=== PATIENT | male | born 1950 | race Caucasian/White ===

== ENCOUNTER 2019-12-27 13:39 | Inpatient (IN) | payer OTHER, MEDICARE ==
[~2019-12-27] VITALS: Ht 165.1 cm; Wt 54.4 kg
[2019-12-27] VITALS (8 sets, daily range): BP systolic 104–132; BP diastolic 66–80
[~2019-12-27 13:39] MED LIST: ABILIFY2 MG PO; ANDRO 100100 MG/ML IM; AUGMENTIN 500 M1 TAB PO; BUSPIRONE HCL10 MG PO; DILTIAZEM240 M1 PO; MS CONTIN15 MG PO; PRILOSEC20 MG PO; REMERON SOLTAB45 MG PO; TRAMADOL HCL50 MG PO; Theragran M,Cen1 TAB PO; VITAMIN B121000 MC2 SL
[2019-12-27 14:02] LABS: HEMATOCRIT 44.5 % (42.0-52.0); HEMOGLOBIN 15.6 g/dl (14.0-18.0); MEAN CELL VOLUME 88.5 fl (80.0-94.0); MEAN CORPUSCULAR HGB CONC 35.1 g/dl (33.0-37.0); MEAN PLATELET VOLUME 8.7 fl (9.6-12.3); PLATELET COUNT AUTOMATED 339 10*3/uL (130-400); RED BLOOD COUNT 5.03 10*6/uL (4.50-5.90); RED CELL DISTRI WIDTH 12.7 % (0-14.5); WHITE BLOOD COUNT 29.6 10*3/uL (4.8-10.8)
[2019-12-27 14:16] LABS: ACT PARTIAL THROMBO TIME 33.6 SECONDS (20.0-32.1)
[2019-12-27 14:18] LABS: ALBUMIN 2.9 gm/dl (3.1-4.5); ALKALINE PHOSPHATASE 86 U/L (45-117); BUN 17 mg/dl (7-24); CHLORIDE 98 mmol/L (98-107); CREATININE 0.97 mg/dL (0.70-1.30); POTASSIUM 3.9 mmol/L (3.5-5.1); SGOT/AST 42 IU/L (3-35); SGPT/ALT 24 U/L (12-78); SODIUM 133 mmol/L (136-145); TOTAL PROTEIN 8.2 gm/dL (6.4-8.2)
[2019-12-27 14:23] LABS: PLATELET SUFFICIENCY NORMAL (NORMAL); TOTAL CELLS COUNTED 100 #CELLS
--- NOTE | 2019-12-27 16:01 | NUR ---
DR VILLAR NOTIFIED THAT DR FISHER IS NOT AVAILABLE FOR CONSULT UNTIL TOMORROW.
--- NOTE | 2019-12-27 16:14 | NUR ---
PATIENT DENIES WOUNDS A&OX4.
--- NOTE | 2019-12-27 16:16 | NUR ---
PATIENT TAKEN TO [facility] AT THIS TIME BY THIS NURSE. NO CHANGE IN PATIENT STATUS.
[2019-12-27 17:05] LABS: ABG BASE EXCESS -1.1 mmol/L (-2.0-2.0); ARTERIAL BLOOD GAS PH 7.499 (7.35-7.45)
[2019-12-27] MEDS ORDERED: PRINIVIL10 MG PO (17:32)
[2019-12-27] MEDS ORDERED: VITAMIN D325 MC1 PO (17:33)
--- NOTE | 2019-12-27 18:00 | NUR ---
DR YAN ANSWERING SERVICE MADE AWARE OF NEW CONSULT ORDER.
--- NOTE | 2019-12-27 19:14 | NUR ---
MORPHINE GIVEN AT THIS TIME PER PT REQUEST FOR PAIN RATED 8/10. PAIN LOCATED IN CHEST AND LEFT FLANK AREA. PATIENT DESCRIBES PAIN "PRESSURE-LIKE". WILL CONTINUE TO MONITOR AND REASSESS. CALL LIGHT WITHIN REACH.
--- NOTE | 2019-12-27 23:16 | NUR ---
IV SITE BECAME DISLODGED WHEN PATIENT WAS ADJUSTING GOWN. BLEEDING WAS STOPPED, PATIENT CLEANED UP AND IV RESTARTED IN THE RIGHT WRIST. PATIENT TOLERATED WELL.
--- NOTE | 2019-12-27 23:52 | NUR ---
D-DIMER RESULT ELEVATED. CARDIOLOGY STATES SINCE PATIENT IS ALREADY ON HEPARIN RESULTS DO NOT NEED TO BE CALLED TO THEM AND THEY WILL HANDLE IT IN THE MORNING PER DR. WHITE.
[2019-12-28] VITALS (9 sets, daily range): BP systolic 107–135; BP diastolic 64–87
--- NOTE | 2019-12-28 02:20 | NUR ---
DR. KWONG CALLED. PATIENT SOUNDS MOIST WITH MOIST NON-PRODUCTIVE COUGH AND PATIENT STATES HE IS HAVING TROUBLE BREATHING PATIENT RESPIRATIONS ARE 30-40 AT THIS TIME AND APPEARS RESTLESS. ORDERS RECEIVED FOR IV LASIX. WILL CONTINUE TO MONITOR AND REASSESS.
--- NOTE | 2019-12-28 03:15 | NUR ---
PATIENT SITTING UP IN BED PATIENT STATES HE CANT BREATHE. PATIENT RESPIRATIONS IN THE 50-60 AND PATIENT IS DIAPHORETIC AT THIS TIME. DR. KWONG NOTIFIED AND ORDERS RECEIVED. PATIENT PLACED ON BIPAP 12/6 AT 50% AND ABG DRAWN AT THIS TIME. PATIENT IS ABLE TO STILL ANSWER QUESTIONS. BREATHING TX GIVEN AT THIS TIME AND CXR TAKEN. CALL LIGHT WITHIN REACH.
[2019-12-28 03:40] LABS: ARTERIAL BLOOD GAS PH 7.433 (7.35-7.45)
--- NOTE | 2019-12-28 03:45 | NUR ---
DR. KWONG NOTIFIED OF ABG RESULTS. PATIENT WILL REMAIN ON BIPAP FOR 2 HOURS AND ABG'S WILL BE REPEATED.
[2019-12-28 05:21] LABS: ALBUMIN 2.7 gm/dl (3.1-4.5); BUN 16 mg/dl (7-24); CHLORIDE 103 mmol/L (98-107); CHOLESTEROL 101 mg/dL (<200); CREATININE 0.92 mg/dL (0.70-1.30); POTASSIUM 3.3 mmol/L (3.5-5.1); SGOT/AST 35 IU/L (3-35); SGPT/ALT 24 U/L (12-78); SODIUM 136 mmol/L (136-145); TRIGLYCERIDES 75 mg/dl (<150); VLDL CHOLESTEROL 15 mg/dL (6-40)
[2019-12-28 05:28] LABS: ALKALINE PHOSPHATASE 85 U/L (45-117); HDL CHOLESTEROL 55 mg/dl (40-60); LDL CHOLESTEROL 31 mg/dL (9-159); PHOSPHOROUS 2.8 mg/dL (2.5-4.9); TOTAL PROTEIN 8.1 gm/dL (6.4-8.2)
[2019-12-28 06:07] LABS: HEMATOCRIT 46.2 % (42.0-52.0); HEMOGLOBIN 15.6 g/dl (14.0-18.0); MEAN CELL VOLUME 91.1 fl (80.0-94.0); MEAN CORPUSCULAR HGB 30.8 pg (27.0-31.0); MEAN CORPUSCULAR HGB CONC 33.8 g/dl (33.0-37.0); MEAN PLATELET VOLUME 9.3 fl (9.6-12.3); PLATELET COUNT AUTOMATED 389 10*3/uL (130-400); RED BLOOD COUNT 5.07 10*6/uL (4.50-5.90); RED CELL DISTRI WIDTH 12.9 % (0-14.5); WHITE BLOOD COUNT 29.3 10*3/uL (4.8-10.8)
--- NOTE | 2019-12-28 06:52 | NUR ---
HEPARIN DRIP INCREASED TO 14 UNITS PER PROTOCOL. VERIFIED BY NASEEM CALDERON RN.
[2019-12-28 06:55] LABS: BURR CELLS FEW; PLATELET SUFFICIENCY NORMAL (NORMAL); TOTAL CELLS COUNTED 100 #CELLS
[2019-12-28 06:56] LABS: POLYCHROMASIA SLIGHT
[2019-12-28 06:58] LABS: VITAMIN D, 25-HYDROXY 49.1 ng/mL (30-100)
[2019-12-28 07:16] LABS: ARTERIAL BLOOD GAS PH 7.457 (7.35-7.45)
--- NOTE | 2019-12-28 09:00 | NUR ---
Bucket Hooker in to see patient. He is currently on bipap. He states he lives alone with his family checking in on him. He does have some steps. He uses [facility]. He has a cane and a walker. No O2 at home. Will follow up at a later time when he is off bipap. Discharge plan undecided at this time.
--- NOTE | 2019-12-28 12:13 | NUR ---
10:10 AM PT TAKE OFF OF BIPAP BY RN TO EAT.
--- NOTE | 2019-12-28 12:14 | NUR ---
PT TAKEN OFF OF BIPAP AT THIS TIME. VISITING HOURS. PT PLACED ON 5 L NC. SPO2 96%.
--- NOTE | 2019-12-28 12:14 | NUR ---
11:30 AM PT PLACED ON BIPAP. TOLERATING WELL. RESPS REGULAR AND UNLABORED.
--- NOTE | 2019-12-28 14:35 | NUR ---
RETURNED FROM CT
--- NOTE | 2019-12-28 15:07 | NUR ---
Kennel Manager in to see patient. He is currently not in his room. Will follow up at a later time.
--- NOTE | 2019-12-28 17:31 | NUR ---
MEDICATED WITH NORCO FOR C/O PAIN IN BACK & RIBS
--- NOTE | 2019-12-28 18:21 | NUR ---
IV started left upper arm with #22 protective cath after 1 attempts. Site prepped with Chloroprep. Sterile dressing applied. Patient tolerated procedure well. Hep Lock discontinued to right wrist after tender. Site asymptomatic. Pressure applied. Sterile dressing applied. RANGEL ORONA
[2019-12-29] VITALS: BP 118/67
[2019-12-29 04:00] VITALS: BP 121/65
[2019-12-29 05:28] LABS: ALBUMIN 2.2 gm/dl (3.1-4.5); ALKALINE PHOSPHATASE 64 U/L (45-117); BUN 17 mg/dl (7-24); CHLORIDE 105 mmol/L (98-107); POTASSIUM 3.5 mmol/L (3.5-5.1); SGOT/AST 42 IU/L (3-35); SGPT/ALT 31 U/L (12-78); SODIUM 136 mmol/L (136-145); TOTAL PROTEIN 6.4 gm/dL (6.4-8.2)
[2019-12-29 06:04] LABS: HEMATOCRIT 36.6 % (42.0-52.0); HEMOGLOBIN 12.5 g/dl (14.0-18.0); MEAN CELL VOLUME 88.4 fl (80.0-94.0); MEAN CORPUSCULAR HGB 30.2 pg (27.0-31.0); MEAN CORPUSCULAR HGB CONC 34.2 g/dl (33.0-37.0); MEAN PLATELET VOLUME 9.2 fl (9.6-12.3); PLATELET COUNT AUTOMATED 362 10*3/uL (130-400); RED BLOOD COUNT 4.14 10*6/uL (4.50-5.90); RED CELL DISTRI WIDTH 12.9 % (0-14.5); WHITE BLOOD COUNT 20.6 10*3/uL (4.8-10.8)
[2019-12-29 07:35] LABS: TOTAL CELLS COUNTED 100 #CELLS
[2019-12-29 07:36] LABS: BURR CELLS FEW; PLATELET SUFFICIENCY NORMAL (NORMAL)
[2019-12-29 08:00] VITALS: BP 119/75
--- NOTE | 2019-12-29 09:05 | NUR ---
DR GUIDO HERE AND SPOKE WITH PATIENT & DAUGHTER. PO NORCO GIVEN FOR C/O BACK PAIN
--- NOTE | 2019-12-29 09:14 | NUR ---
DR FISHER HERE - CXR ORDERED WHILE HE IS HERE.
--- NOTE | 2019-12-29 10:30 | NUR ---
Speech And Language Assistant in to talk to patient. Patient states lives at home alone with his family checking in on him. There are 3-4 steps in the home. Physician: Dr. Javier at the [facility]: [facility]: considering Patient's level of ADLs: MINIMAL ASSIST Patient has working utilities: yes DME: cane, walker Follow-up physician's appointment after d/c: will be made by the hospitalist nurse director upon discharge Does patient want to access PORTAL?: no Discharge plan discussed with patient and family who are at the bedside. He lives at home alone right now with his family checking in on him. The daughter states she is trying to get him to move in with her. He needs assistance with his ADLs and ambulates with a cane occasionally. Discussed home health care services and they would like to think about it. She has reached out to the OR for a hospital bed and a seated walker. When medically stable he will be discharged to home. Daughter will provide transportation on discharge. JARAD MILLER
--- NOTE | 2019-12-29 11:59 | NUR ---
Spoke to Don at the [facility] to notify of patient being inpatient. He states patient has Medicare and can stay here at our facility under his Medicare. [facility] and he states that was not necessary.
[2019-12-29 12:00] VITALS: BP 112/62
--- NOTE | 2019-12-29 12:11 | NUR ---
MORPHINE GIVEN FOR C/O BACK & RIB PAIN. FAMILY PRESENT
--- NOTE | 2019-12-29 15:42 | NUR ---
COMPLETE BATH DONE - BUTTOCK BLANCGES...PATIENT DECIDED NOT TO GET UP IN CHAIR AFTER BATH - FEELING TOO TIRED. LIPS REMAIN SLIGHTLY DUSKY ON NC5L.
--- NOTE | 2019-12-29 15:56 | NUR ---
DR FISHER CALLED IN TO DISCUSS CASE - ORDERS RECEIVED. PATIENT & UPDATED ON CONDITION
[2019-12-29 16:00] VITALS: BP 141/92
[2019-12-29 20:00] VITALS: BP 119/71
--- NOTE | 2019-12-29 21:28 | NUR ---
PT. RESTING IN BED. HEPARIN INFUSING VIA [facility], SITE ASYMPT. HEP LOCK IN LEFT UPPER ARM AND [facility]ER ASYMPT. LUNGS HAVE EXP WHEEZES BILAT, PULSE OX 93% ON 5L NC. ABODMEN SOFT, NONDISTENDED AND NORMO. EMACIATED. NO PERIPHERAL EDEMA NOTED. RESP. EASY AND REG AT REST, SOB NOTED WITH MINIMAL EXERTION. NASEEM CALDERON RN
--- NOTE | 2019-12-29 23:18 | NUR ---
PT. GIVEN NORCO AND RESTORIL ORDERED AT 2225 FOR REQUEST FOR PAIN MED AND SLEEPING AIDE. PAIN RATED #4 ON 1-10 PAIN SCALE. PT. CURRENTLY SLEEPING, ABOVE EFFECTIVE. NASEEM CALDERON RN
[2019-12-30] VITALS: BP 124/74
[2019-12-30 04:00] VITALS: BP 132/68
[2019-12-30 05:30] LABS: ALKALINE PHOSPHATASE 61 U/L (45-117); BUN 13 mg/dl (7-24); CHLORIDE 105 mmol/L (98-107); CREATININE 0.79 mg/dL (0.70-1.30); PHOSPHOROUS 2.7 mg/dL (2.5-4.9); POTASSIUM 3.7 mmol/L (3.5-5.1); SGOT/AST 43 IU/L (3-35); SGPT/ALT 33 U/L (12-78); SODIUM 136 mmol/L (136-145); TOTAL PROTEIN 6.4 gm/dL (6.4-8.2)
[2019-12-30 06:08] LABS: BASO # 0.1 10*3/uL (0.0-0.1); BASO % 0.6 % (0.0-1.0); EOS # 0.5 10*3/uL (0.0-0.4); EOS % 3.2 % (1.0-4.0); HEMOGLOBIN 12.1 g/dl (14.0-18.0); LYMPH # 4.5 10*3/uL (1.3-4.4); LYMPH % 29.6 % (27.0-41.0); MEAN CELL VOLUME 88.8 fl (80.0-94.0); MEAN CORPUSCULAR HGB 30.7 pg (27.0-31.0); MEAN CORPUSCULAR HGB CONC 34.6 g/dl (33.0-37.0); MEAN PLATELET VOLUME 9.1 fl (9.6-12.3); MONO # 1.5 10*3/uL (0.1-1.0); MONO % 9.6 % (3.0-9.0); NEUT # 8.4 10*3/uL (2.3-7.9); NEUT % 55.3 % (47.0-73.0); PLATELET COUNT AUTOMATED 355 10*3/uL (130-400); RED BLOOD COUNT 3.94 10*6/uL (4.50-5.90); RED CELL DISTRI WIDTH 12.8 % (0-14.5); WHITE BLOOD COUNT 15.2 10*3/uL (4.8-10.8)
--- NOTE | 2019-12-30 07:06 | NUR ---
Shift chart check completed.
[2019-12-30 08:00] VITALS: BP 130/70
--- NOTE | 2019-12-30 09:39 | NUR ---
Received Palliative order for [facility]. Faxed order.
--- NOTE | 2019-12-30 09:54 | NUR ---
DR GUIDO JUST SPOKE WITH THE PATIENT AND DAUGHTER TO CONFIRM THAT HE DID NOT WANT THE BIOPSY & ANY FURTHER TREATMENT FOIR THE CANCER. DISCUSSED PALLIATIVE CARE AND THEY BOTH AGREED.
--- NOTE | 2019-12-30 09:56 | NUR ---
NURSE SPOKE WITH THE PATIENT AND DAUGHTER AGAIN ABOUT PALLIATIVE & WHAT THEY OFFERED. WE THEN DISCUSSED RISKS & BENEFITS OF INTUBATION, CHEST COMPRESSIONS & DEFIBRILLATION. PATIENT HAS MIXED FEELINGS AND ISN'T SURE HE WANTS THOSE BUT WANTS TO TALK TO PALLIATIVE PRIOR TO MAKING ANY DECISIONS. PER THE PATIENT HE "JUST WANTS TO GO HOME & LIVE WHAT LIFE HE HAS LEFT" WE DISCUSSED OPTIONS AND THEY ARE GOING TO TALK MORE & THINK ABOUT IT. THIS DISCUSSION WAS ALSO HELD BETWEEN THE PATIENT & DAUGHTER YESTERDAY BUT TODAY THEY SEEMED MORE OPEN AND HE SEEMS MORE AT [place] WITH MAKING THE CHANGES,. WILL CONTINUE TO FOLLOW
--- NOTE | 2019-12-30 10:49 | NUR ---
BED PLACED IN CHAIR POSITION - PT TURNED FROM SIDE TO SIDE PRIOR TO ADJUST SHEETS & PATIENT RESP BECAME MORE LABORED AND LIPS DUSKY IN COLOR. DAUGHTER AT BEDSIDE.
[2019-12-30 12:00] VITALS: BP 118/70
--- NOTE | 2019-12-30 13:07 | NUR ---
[employer] NASEEM LLANES MADE AWARE OF DOWNGRADED TO C
--- NOTE | 2019-12-30 13:42 | NUR ---
PALLIATIVE CARE HERE AND SPEAKING WITH THE PATIENT AFTER SPEAKING WITH THE DAUGHTER VIA PHONE & SHE IS UNABLE TO COME IN TO MEET WITH THEM TODAY. THEY WILL CALL HER BACK & TRY TO MAKE ARRANGEMENTS FOR HER TO MEET WITH SOMEONE TOMORROW.
--- NOTE | 2019-12-30 14:54 | NUR ---
Discussed discharge planning with [facility] SAL[employer]. Daughter wishes to take the patient home with hospice. Explained [facility] is the only hospice servicing [place], daughter is agreeable. associate financial planner notified.
--- NOTE | 2019-12-30 15:03 | NUR ---
Received order for hospice. Patient is from [place] so hospice order was faxed to [facility], the only hospice provider for this part of [place]. Contacted facilty who stated they can't be here to discuss with patient until tomorrow 12/31/19
[2019-12-30 16:00] VITALS: BP 95/59
--- NOTE | 2019-12-30 16:15 | NUR ---
MORPHINE IV GIVEN FOR INCREASED DISCOMFORT & INCREASED USE OF ACCESSORY MUSCLES TO BREATHE. RR 31. 91% ON NC5L
--- NOTE | 2019-12-30 19:30 | NUR ---
PATIENT STILL HAS NOT VOIDED AND SAYS THAT HE DOES NOT FEEL LIKE HE NEEDS TO. BLADDER SCAN DONE FOR 390cc. PATIENT REQUESTED TO TRY AND FINALLY VOIDED 200cc DK MELCHOR URINE. PATIENT IS RESTING AND DENIES DISTRESS BUT RESP RATE IN UPP20'S AND PULSE OX IS 91% ON NC5L. LUNGS HAVE MORE AIR MOVING BUT WHEEZE REMAINS HOWEVER NOT HARSH YESTERDAY. PATIENT AGAIN REQUESTED TO WAIT ON BATH UNTIL TOMORROW.
[2019-12-30 20:00] VITALS: BP 100/62
--- NOTE | 2019-12-30 21:13 | NUR ---
MOVED TO [facility]- WITH ALL BELONGINGS - [facility] INFORMED
[2019-12-31] VITALS: BP 109/63
[2019-12-31 06:32] LABS: HEMOGLOBIN 12.1 g/dl (14.0-18.0); MEAN CELL VOLUME 89.5 fl (80.0-94.0); MEAN CORPUSCULAR HGB 30.9 pg (27.0-31.0); MEAN CORPUSCULAR HGB CONC 34.6 g/dl (33.0-37.0); MEAN PLATELET VOLUME 8.9 fl (9.6-12.3); PLATELET COUNT AUTOMATED 366 10*3/uL (130-400); RED BLOOD COUNT 3.91 10*6/uL (4.50-5.90); RED CELL DISTRI WIDTH 13.1 % (0-14.5); WHITE BLOOD COUNT 13.3 10*3/uL (4.8-10.8)
[2019-12-31 07:06] LABS: BUN 13 mg/dl (7-24); CHLORIDE 105 mmol/L (98-107); CREATININE 0.87 mg/dL (0.70-1.30); POTASSIUM 3.9 mmol/L (3.5-5.1); SGOT/AST 37 IU/L (3-35); SGPT/ALT 34 U/L (12-78); SODIUM 136 mmol/L (136-145)
[2019-12-31 07:08] LABS: ALKALINE PHOSPHATASE 58 U/L (45-117); PHOSPHOROUS 4.1 mg/dL (2.5-4.9); TOTAL PROTEIN 6.5 gm/dL (6.4-8.2)
[2019-12-31 07:21] LABS: BASOPHILS 1 % (0-1); TOTAL CELLS COUNTED 100 #CELLS
[2019-12-31 07:22] LABS: BURR CELLS MODERATE; PLATELET SUFFICIENCY NORMAL (NORMAL)
--- NOTE | 2019-12-31 07:30 | NUR ---
TOOK OVER CARE OF PT. PT SITTING UP IN BED, EYES OPEN, ALERT/AWAKE AND ORIENTED. NO COMPLAINTS ARE VOICED AT THIS TIME. RESPIRATIONS ARE UNLABORED. 5L NC SUPPLEMENTAL OXYGEN IN TACT. ALL VITALS WNL. ASSESSMENT COMPLETE. CALL LIGHT IN REACH/SAFETY MEASURES ARE IN PLACE.
[2019-12-31 08:37] VITALS: BP 98/50
--- NOTE | 2019-12-31 10:30 | NUR ---
Wood Tool Maker in to see patient. No new needs or request at this time. When medically stable he will be discharged to home with [facility]. cyber intel planner following.
[2019-12-31 10:32] VITALS: BP 108/60
[2019-12-31 12:00] VITALS: BP 106/69
--- NOTE | 2019-12-31 12:27 | NUR ---
PT GIVEN NORCO AT THIS TIME FOR C/O INCREASED PAIN. [facility] NURSE CRISTOBAL ARRIVES AT THIS TIME TO SPEAK WITH PT AND PT DAUGHTER.
--- NOTE | 2019-12-31 13:23 | NUR ---
MIKE EFFECITVE PER PT.
--- NOTE | 2019-12-31 13:42 | NUR ---
Angeli from [facility] was in to see patient. Plan is to discharge patient to home tomorrow with [facility]. Angeli states DME will be delivered prior to discharge.
--- NOTE | 2019-12-31 14:10 | NUR ---
PHYSICAL THERAPY Patric completed moderate level of complexity 17435 pt to be discharged to home looking at hospice. Per nsg dgtr and MD wanting to see how pt does and for activity as able to tolerate. Full report to follow Arlyn Tyler PT
[2019-12-31 16:00] VITALS: BP 108/56
--- NOTE | 2019-12-31 17:37 | NUR ---
PT GIVEN MORPHINE AT THIS TIME PER REQUEST FOR GENERALIZED PAIN. WILL MONITOR FOR EFFECTIVENESS. RESPIRATIONS UNLABORED ON 5L NC. IV ATB INFUSING. IV SITE PATENT. HOB ELEVATED, SAFETY MEASURES IN PLACE. CALL LIGHT IN REACH.
[2019-12-31 20:00] VITALS: BP 103/64
--- NOTE | 2019-12-31 23:21 | NUR ---
RESTORIL PROVIDED PER PT REQUEST. ALL NEEDS MET AT THIS TIME.
[2020-01-01] VITALS: BP 107/61
--- NOTE | 2020-01-01 05:05 | NUR ---
PT GIVEN MORPHINE FOR DISCOMFORT. VERY SOB AFTER USING URINAL AT SIDE OF BED AND GRIMACING DURING REPOSITIONING SELF. BED ALARM MAINTAINED. CALL LIGHT IN REACH.
[2020-01-01 06:37] LABS: HEMATOCRIT 35.7 % (42.0-52.0); MEAN CELL VOLUME 89.7 fl (80.0-94.0); MEAN CORPUSCULAR HGB 30.2 pg (27.0-31.0); MEAN CORPUSCULAR HGB CONC 33.6 g/dl (33.0-37.0); MEAN PLATELET VOLUME 8.7 fl (9.6-12.3); PLATELET COUNT AUTOMATED 390 10*3/uL (130-400); RED BLOOD COUNT 3.98 10*6/uL (4.50-5.90); RED CELL DISTRI WIDTH 12.9 % (0-14.5); WHITE BLOOD COUNT 13.9 10*3/uL (4.8-10.8)
[2020-01-01 07:16] LABS: ALKALINE PHOSPHATASE 55 U/L (45-117); CHLORIDE 102 mmol/L (98-107); CREATININE 0.95 mg/dL (0.70-1.30); PHOSPHOROUS 4.1 mg/dL (2.5-4.9); POTASSIUM 3.9 mmol/L (3.5-5.1); SGOT/AST 48 IU/L (3-35); SGPT/ALT 40 U/L (12-78); SODIUM 135 mmol/L (136-145); TOTAL PROTEIN 6.6 gm/dL (6.4-8.2)
[2020-01-01 07:24] LABS: BUN 12 mg/dl (7-24)
--- NOTE | 2020-01-01 07:30 | NUR ---
TOOK OVER CARE OF PT. ASSESSMENT COMPLETE, RESPIRATIONS EASY AND UNLABORED ON 5L NC. BP WNL. NO S/S OF DISTRESS. HOB ELEVATED, ALL SAFETY MEASURES IN PLACE. CALL LIGHT IN REACH.
[2020-01-01 07:41] LABS: PLATELET SUFFICIENCY NORMAL (NORMAL); TOTAL CELLS COUNTED 100 #CELLS
[2020-01-01 08:24] VITALS: BP 102/54
[2020-01-01 08:54] VITALS: BP 102/54
[2020-01-01] MEDS ORDERED: LEVAQUIN750 M1 PO (10:02)
[2020-01-01] MEDS ORDERED: METOPROLOL SUCC50 M1 PO (10:02)
--- NOTE | 2020-01-01 10:58 | NUR ---
Contacted [facility] ambulance to transport patient home. They stated they will transport but their crew is out right now. She said she will call me back shortly with a time.
--- NOTE | 2020-01-01 11:10 | NUR ---
NOTIFIED PT DAUGHTER THAT [facility] [place] WILL PICK HIM BETWEEN 30-60 MINUTES.
[2020-01-01 12:00] VITALS: BP 107/66
--- NOTE | 2020-01-01 13:15 | NUR ---
PT SLEEPING IN BED AT THIS TIME. RESPIRATIONS UNLABORED. SAFETY MEASURES IN PLACE. CALL LIGHT IN REACH.
--- NOTE | 2020-01-01 14:00 | NUR ---
Discharge instructions reviewed with patient/family. Patient receptive and verbalizes understanding. Follow-up care arranged. Written instructions given to patient/family. KHANH JOHNSTON
== END 2020-01-01 14:00 | disposition hospice, home (50) | DRG 871 ==
LOC: ED 13:39 → EDHOLD 15:24 → 4E 15:24 → ICCU 15:24 → 4E 12-30 20:58
PROVIDERS: Emergency Medicine; Internal Medicine; Internal Medicine Critical Care Medicine; Student in an Organized Health Care Education/Training Program; ADMIT Family Medicine
DX: A41.9 Sepsis, unspecified organism (principal); J18.9 Pneumonia, unspecified organism; E43 Unspecified severe protein-calorie malnutrition; J96.21 Acute and chronic respiratory failure with hypoxia; I21.4 Non-ST elevation (NSTEMI) myocardial infarction; C34.90 Malignant neoplasm of unspecified part of unspecified bronchus or lung; E87.1 Hypo-osmolality and hyponatremia; C85.98 Non-Hodgkin lymphoma, unspecified, lymph nodes of multiple sites; J93.9 Pneumothorax, unspecified; I31.3 Pericardial effusion (noninflammatory); Z68.1 Body mass index [BMI] 19.9 or less, adult; Z66 Do not resuscitate; Z51.5 Encounter for palliative care; F04 Amnestic disorder due to known physiological condition; R65.20 Severe sepsis without septic shock; R73.9 Hyperglycemia, unspecified; F32.5 Major depressive disorder, single episode, in full remission; F03.90 Unspecified dementia, unspecified severity, without behavioral disturbance, psychotic disturbance, mood disturbance, and anxiety; F17.290 Nicotine dependence, other tobacco product, uncomplicated; F43.10 Post-traumatic stress disorder, unspecified; M54.5 Low back pain; G89.29 Other chronic pain; F17.210 Nicotine dependence, cigarettes, uncomplicated; J43.9 Emphysema, unspecified; I10 Essential (primary) hypertension; F10.21 Alcohol dependence, in remission; E87.6 Hypokalemia; I49.3 Ventricular premature depolarization; Z71.6 Tobacco abuse counseling; Z90.49 Acquired absence of other specified parts of digestive tract; Z82.49 Family history of ischemic heart disease and other diseases of the circulatory system; Z79.899 Other long term (current) drug therapy